=== PATIENT | male | born 1975 | race Caucasian/White ===

== ENCOUNTER 2017-01-08 04:20 | Emergency (ER) | payer BC ==
[2017-01-08] MEDS ORDERED: DOXYcycline CAP(*) 100 MG PO ONE (04:56)
--- NOTE | 2017-01-08 05:34 | ED ---
Melissa Diaz SooYoung, scribed for Gamal Marquez MD on 01/08/17 at 0433 . Skin Complaint - HPI Summary HPI Summary: A 41 y/o M presents to the ED with c/o rash on his back first noticed initially yesterday by his . Per pt, it appears to look like a bulls eye. He doesn't recall being bit by a tick, says he doesn't spend a lot of time outside. PCP is Dr. Rojas. NAINA. - History of Current Complaint Chief Complaint: EDRashSkinAbscess Stated Complaint: RASH Hx Obtained From: Patient Onset/Duration: Still Present Timing: Constant Current Severity: Mild Pain Intensity: 0 Pain Scale Used: 0-10 Numeric Skin Location: Other: - back - Allergy/Home Medications Allergies/Adverse Reactions: Allergies Allergy/AdvReac Type Severity Reaction Status Date / Time No Known Allergies Allergy Verified 01/08/17 05:27 PMH/Surg Hx/FS Hx/Imm Hx Previously Healthy: Yes Sensory History: Denies: Hx Deafness Opthamlomology History: Denies: Hx Legally Blind Infectious Disease History: No Infectious Disease History: Denies: Traveled Outside the [place] in Last 30 Days - Family History Known Family History: Positive: Cardiac Disease - grandfather Negative: Hypertension, Diabetes - Social History Occupation: Unemployed - OTHER Lives: With Family Review of Systems Negative: Fever Positive: Rash - back All Other Systems Reviewed And Are Negative: Yes Physical Exam Triage Information Reviewed: Yes Vital Signs On Initial Exam: Initial Vitals Temp Pulse Resp BP Pulse Ox 97.4 F 85 16 128/77 96 01/08/17 04:23 01/08/17 04:23 01/08/17 04:23 01/08/17 04:23 01/08/17 04:23 Vital Signs Reviewed: Yes Appearance: Positive: Well-Appearing, No Pain Distress Skin: Positive: Warm, Other - 6x5 cm ovouid target like lesion lt upper back Head/Face: Positive: Normal Head/Face Inspection Eyes: Positive: TIFFANIE ENT: Positive: Hearing grossly normal Neck: Positive: Supple Respiratory/Lung Sounds: Positive: Clear to Auscultation, Breath Sounds Present Cardiovascular: Positive: RRR Abdomen Description: Positive: Nontender, Soft Bowel Sounds: Positive: Present Musculoskeletal: Positive: Strength/ROM Intact Neurological: Positive: Sensory/Motor Intact Diagnostics - Vital Signs Vital Signs Temp Pulse Resp BP Pulse Ox 01/08/17 04:25 97.4 F 93 16 128/77 97 01/08/17 04:23 97.4 F 85 16 128/77 96 - Laboratory Lab Statement: Any lab studies that have been ordered have been reviewed, and results considered in the medical decision making process. Re-Evaluation - Re-Evaluation First Eval Comment: will tx pt for presumed lyme pending serology andf reevaluation by pcp Course/Dx - Diagnoses Provider Diagnoses: Lyme disease Discharge - Discharge Plan Condition: Stable Disposition: HOME Prescriptions: DOXYcycline CAP(*) [DOXYcycline 100MG CAP(*)] 100 mg PO BID #30 cap Patient Education Materials: Doxycycline (By mouth), Lyme Disease (ED) Referrals: No Primary Care Phys,NOPCP [Primary Care Provider] - [facility] [Outside] Additional Instructions: Follow up with your primary care provider. The documentation as recorded by the Melissa gee SooYoung accurately reflects the service I personally performed and the decisions made by me, Gamal Marquez MD.
[2017-01-08 05:54] VITALS: BP 153/97
[2017-01-11 16:16] LABS: Lyme Disease IgG Ab WB Negative (Negative)
== END 2017-01-08 05:54 | disposition home or self-care (01) ==
LOC: ED 04:20
DX: A69.20 Lyme disease, unspecified (principal)
CPT/HCPCS: 86617; 86618; 99282; A9270-GY